=== PATIENT | male | born 1950 | race Caucasian/White ===

== ENCOUNTER 2024-09-24 14:29 | Outpatient (CLI) | payer MEDICARE ==
[2024-09-24 16:08] LABS: Anion Gap 13 mmol/L (10-20); BUN (Urea Nitrogen) 19 mg/dL (8.4-25.7); Calc. Creatinine Clearance 0 mL/min (70-130); Calcium 9.3 mg/dL (7.8-10.44); Carbon Dioxide 19 mmol/L (23-31); Chloride 113 mmol/L (98-107); Estimated GFR 91; Glucose 87 mg/dL (83-110); Potassium 4.4 mmol/L (3.5-5.1); Sodium 141 mmol/L (136-145)
[2024-09-24 16:09] LABS: Hematocrit 39.3 % (38.8-50.0); Hemoglobin 12.6 g/dL (13.5-17.5); Mean Corpuscular HGB CONC 32.1 g/dL (32.0-36.0); Mean Corpuscular Hemoglobin 28.6 pg (27.0-33.0); Mean Corpuscular Volume 89.3 fL (81.2-95.1); Mean Platelet Volume 10.7 fL (7.4-10.4); Platelet Count 219 10x3/uL (150-450); RBC Distribution Width 14.8 % (11.5-14.5); White Blood Cell (WBC) Count 7.56 10x3/uL (3.5-10.5)
== END 2024-09-24 14:30 | disposition home or self-care (01) ==
LOC: CSHLAB 14:29
PROVIDERS: ATTEND Surgery
DX: Z01.818 Encounter for other preprocedural examination (principal); C15.9 Malignant neoplasm of esophagus, unspecified
CPT/HCPCS: 80048; 85027; 93005; 93010

== ENCOUNTER 2024-09-30 06:13 | Day surgery (SDC) | payer MEDICARE ==
[2024-09-24 14:55] VITALS: BMI 30.6
[2024-09-30] MEDS ORDERED: Bupivacaine HCl 0.5%/Epinephrine 1:200,000/PF 30 ml Vial ONE (06:36)
[2024-09-30] MEDS ORDERED: Ondansetron PF 4 MG/2 ML Vial ONE (07:08)
[2024-09-30] MEDS ORDERED: PROPOFOL 20 ML ONE (07:08)
[2024-09-30] MEDS ORDERED: Dexamethasone 4 mg/ml Vial ONE (07:08)
[2024-09-30] MEDS ORDERED: Lidocaine 2% PF 5 ML VIAL ONE (07:09)
[2024-09-30] MEDS ORDERED: CEFAZOLIN 2 GM VIAL ONE (07:18)
[2024-09-30] MEDS ORDERED: ePHEDrine Sulfate 50 MG/10 ML VIAL ONE (07:49)
[2024-09-30] MEDS ORDERED: PHENYLEPHRINE-NS 100 MCG/ML 10 ML SYRINGE ONE (07:52)
[2024-09-30] MEDS ORDERED: fentaNYL 50 mcg/mL 1 mL Vial ONE (07:52)
== END 2024-09-30 09:20 | disposition home or self-care (01) ==
LOC: CSHSDC 06:13
PROVIDERS: ATTEND Surgery
PROC: 0JH63WZ Insertion of Totally Implantable Vascular Access Device into Chest Subcutaneous Tissue and Fascia, Percutaneous Approach (ICD-10-PCS; principal; 2024-09-30)
DX: C15.5 Malignant neoplasm of lower third of esophagus (principal); I10 Essential (primary) hypertension; G47.33 Obstructive sleep apnea (adult) (pediatric); E11.9 Type 2 diabetes mellitus without complications; I25.10 Atherosclerotic heart disease of native coronary artery without angina pectoris; I48.91 Unspecified atrial fibrillation; Z79.01 Long term (current) use of anticoagulants; Z79.84 Long term (current) use of oral hypoglycemic drugs; Z87.891 Personal history of nicotine dependence; Z79.899 Other long term (current) drug therapy
CPT/HCPCS: 36561; 71045; J1100; J1642; J2405; J2704; J3010; A6258; C1788